=== PATIENT | female | born 1955 | race Caucasian/White ===

== ENCOUNTER 2017-02-22 22:00 | Observation (INO) ==
--- NOTE | 2017-02-22 22:07 | Emergency Department Note ---
Disposition Clinical Impression: Atrial fibrillation with rapid ventricular response, Palpitations, Anxiety Disposition: Admitted As Inpatient Condition: Good Referrals: Karla Solares CNP [Primary Care Provider] - Chest Pain HPI - General Stated Complaint: Chest pain Time Seen by Provider: 02/22/17 22:05 Source: patient Mode of arrival: private vehicle Limitations: no limitations Vital Signs Reviewed: Yes Nursing Notes Reviewed: Yes - History of Present Illness HPI Narrative: 61-year-old obese white female presents emergency department via private vehicle complaining of palpitations. She has a history of having atrial fibrillation, but says that she has not involve a time. She says that she feels like she is short of breath and that her heart is racing. She also says that her chest feels tight. She has had no history of coronary artery disease. She says that she has not yet taken her medicines today, but when this happens her medicines usually take care of it. She has not sure right now what her medicines are. She says that when her heart races she feels dizzy and like she will pass out. She has had no syncope. - Related Data Home Medications Medication Instructions Recorded Confirmed Levothyroxine [Synthroid] 150 mcg PO DAILY 06/08/15 02/22/17 Lisinopril [Zestril] 10 mg PO BID 06/08/15 02/22/17 Metoprolol [Lopressor] 50 mg PO BID 06/08/15 02/22/17 Simvastatin [Zocor] 80 mg PO HS 06/08/15 02/22/17 metFORMIN [Glucophage] 1,000 mg PO BIDWM 06/08/15 02/22/17 Aspirin Enteric Coated [Aspirin EC] 81 mg PO DAILY 07/17/15 02/22/17 Nitroglycerin [Nitrostat] 0.4 mg SL ONCE PRN 11/01/15 02/22/17 LORazepam [Ativan] 0.5 mg PO BID PRN 04/17/16 02/22/17 Ipratropium/Albuterol Neb [Duoneb] 3 ml IH Q4HR PRN 05/12/16 02/22/17 Previous Rx's Medication Instructions Recorded Naproxen [Naprosyn] 500 mg PO BID PRN #20 tablet 01/05/17 Allergies Allergy/AdvReac Type Severity Reaction Status Date / Time ondansetron AdvReac Hypertensio Verified 02/22/17 22:05 [From Zofran (as n hydrochloride)] All systems ED: reviewed and negative except as stated. Constitutional: Denies: fever, chills, weakness, weight change Eyes: Denies: eye pain, eye discharge, vision change ENT ED: Denies: ear pain, throat pain, dental pain, hearing loss, epistaxis, congestion, dysphagia Cardiovascular: Reports: as per HPI, chest pain, palpitations Respiratory: Reports: as per HPI, dyspnea. Denies: cough, wheezes Gastrointestinal: Denies: abdominal pain, nausea, vomiting, diarrhea, constipation, hematemesis, melena, hematochezia Genitourinary: Denies: dysuria, frequency, hematuria, discharge Musculoskeletal: Denies: back pain, neck pain, arthralgia, myalgia Integumentary: Denies: rash, abrasion, lesions Neurological: Denies: headache, weakness, numbness, paresthesias, confusion, abnormal gait, vertigo Psychiatric: Denies: anxiety, depression, suicidal thoughts, homicidal thoughts , auditory hallucinations, visual hallucinations Endocrine: Denies: fatigue Hematological/Lymphatic: Denies: easy bleeding, easy bruising Allergic/Immunologic: Denies: facial swelling, urticaria Chest Pain PMH - Past Medical History Medical history: Reports: COPD, CVA, diabetes, hyperlipidemia, hypertension, SVT , thyroid disease Surgical history: Reports: herniorrhaphy Psychiatric history: Reports: anxiety, depression 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 - Social History Smoking Status: Current every day smoker Alcohol use: Reports: none Drug use: Reports: none Physical Exam - General Limitations: no limitations General appearance: alert, in no apparent distress - Head Head exam: atraumatic, normocephalic, normal inspection - Eye Eye exam: Present: normal appearance, PERRL, EOMI - ENT ENT exam: normal exam, normal oropharynx, mucous membranes moist - Neck Neck exam: Present: normal inspection, full ROM, trachea midline - Chest Chest inspection: Present: normal inspection, symmetric chest wall rise - Respiratory Respiratory exam: Present: normal lung sounds bilaterally. Absent: respiratory distress, wheezes - Cardiovascular Cardiovascular exam: Present: tachycardia, irregular rhythm, other (Tachycardic rate) - Abdominal Exam Abdominal exam: Present: soft, Non-Tender. Absent: tenderness, distention, guarding, rebound, rigidity, organomegaly, pulsatile mass - Extremities Exam Extremities exam: Present: normal inspection, full ROM. Absent: tenderness, pedal edema - Back Exam Back exam: Present: normal inspection, full ROM. Absent: tenderness - Neurological Exam Neurological exam: Present: alert, oriented X3 - Psychiatric Psychiatric exam: Present: normal affect, anxious - Skin Skin exam: Present: warm, dry, intact, normal color Course Course Narrative: Following the patient's arrival and presentation with atrial fibrillation that had a rapid ventricular response of 180, she received 15 mg of Cardizem and 1 mg of Ativan. Shortly after her medications the patient had conversion to a normal sinus rhythm with a rate of 80. She is feeling much better and has no symptoms. Spoke with at [facility] to discuss observation. After reviewing the case with and the patient's subsequent return to baseline and being asymptomatic it is felt that transfer is unnecessary at this time. If the patient should return to atrial fibrillation with RVR she will be transferred to [place] for an intervention, but at this time she will remain here in [place] to be observed overnight. At the time of disposition a TSH is pending. Vital Signs Temperature 98.0 F 02/22/17 22:09 Pulse Rate 174 02/22/17 22:09 Respiratory Rate 24 02/22/17 22:09 Blood Pressure 111/88 02/22/17 22:09 O2 Sat by Pulse Oximetry 99 02/22/17 22:09 Temperature 98.0 F 02/22/17 22:09 Pulse Rate 76 02/22/17 23:35 Respiratory Rate 20 02/22/17 23:35 Blood Pressure 146/78 02/22/17 23:35 O2 Sat by Pulse Oximetry 100 02/22/17 23:35 Oxygen Delivery Oxygen Delivery Nasal Cannula Chest Pain - Lab Data Lab results reviewed: Yes I reviewed the patient's lab results. Result diagrams: 02/22/17 22:15 02/22/17 22:15 Lab Results 02/22/17 02/22/17 02/22/17 Range/Units 22:15 22:15 22:15 WBC 11.9 H (4.3-11.1) K/mcL RBC 4.54 (3.82-4.97) M/mcL Hgb 11.2 L (11.5-15.4) g/dL Hct 36.3 (35.3-44.9) % MCV 80.0 L (83.0-100.0) fL MCH 24.7 L (28.0-33.3) pg MCHC 30.9 L (31.6-35.5) g/dL RDW 14.6 H (11.5-14.5) % Plt Count 294 (140-400) K/mcL MPV 9.8 (9.4-12.4) fL Immature Gran % 0.3 (0-4) % Seg Neutrophils % 56.8 % Lymphocytes % 33.9 % Monocytes % 5.9 % Eosinophils % 2.4 % Basophils % 0.7 % Neutrophils # 6.8 (1.6-8.9) K/mcL Lymphocytes # 4.0 (0.6-4.6) K/mcL Monocytes # 0.7 (0.0-1.3) K/mcL Eosinophils # 0.3 (0.0-0.6) K/mcL Basophils # 0.1 (0.0-0.2) K/mcL PT 10.8 (9.4-12.1) Seconds INR 1.0 Sodium 138 (136-145) mEq/L Potassium 3.4 L (3.5-4.5) mEq/L Chloride 103 (98-109) mEq/L Carbon Dioxide 25 (19-29) mEq/L BUN 8 (7-20) mg/dL Creatinine 0.91 (0.57-1.11) mg/dL Est GFR ( Amer) > 60 (> 60) Est GFR (Non-Af Amer) > 60 (> 60) BUN/Creatinine Ratio 9 (6-26) Glucose 157 H (70-99) mg/dL Calculated Osmolality 288 (280-300) Calcium 9.6 (8.6-10.8) mg/dL Total Bilirubin 0.2 (0.2-1.2) mg/dL AST 15 (5-34) Units/L ALT 8 (0-55) Units/L Alkaline Phosphatase 113 (38-126) Units/L Troponin I (0-0.03) ng/mL Serum Total Protein 7.6 (6.0-8.3) g/dL Albumin 3.7 (3.5-5.0) g/dL Globulin 3.9 H (2.4-3.5) g/dL Albumin/Globulin Ratio 0.9 L (1.1-2.2) 02/22/17 Range/Units 22:15 WBC (4.3-11.1) K/mcL RBC (3.82-4.97) M/mcL Hgb (11.5-15.4) g/dL Hct (35.3-44.9) % MCV (83.0-100.0) fL MCH (28.0-33.3) pg MCHC (31.6-35.5) g/dL RDW (11.5-14.5) % Plt Count (140-400) K/mcL MPV (9.4-12.4) fL Immature Gran % (0-4) % Seg Neutrophils % % Lymphocytes % % Monocytes % % Eosinophils % % Basophils % % Neutrophils # (1.6-8.9) K/mcL Lymphocytes # (0.6-4.6) K/mcL Monocytes # (0.0-1.3) K/mcL Eosinophils # (0.0-0.6) K/mcL Basophils # (0.0-0.2) K/mcL PT (9.4-12.1) Seconds INR Sodium (136-145) mEq/L Potassium (3.5-4.5) mEq/L Chloride (98-109) mEq/L Carbon Dioxide (19-29) mEq/L BUN (7-20) mg/dL Creatinine (0.57-1.11) mg/dL Est GFR ( Amer) (> 60) Est GFR (Non-Af Amer) (> 60) BUN/Creatinine Ratio (6-26) Glucose (70-99) mg/dL Calculated Osmolality (280-300) Calcium (8.6-10.8) mg/dL Total Bilirubin (0.2-1.2) mg/dL AST (5-34) Units/L ALT (0-55) Units/L Alkaline Phosphatase (38-126) Units/L Troponin I 0.02 (0-0.03) ng/mL Serum Total Protein (6.0-8.3) g/dL Albumin (3.5-5.0) g/dL Globulin (2.4-3.5) g/dL Albumin/Globulin Ratio (1.1-2.2) - Radiology Data Radiology results reviewed: Yes I reviewed the patient's radiology results. One view chest read by Dr. Poe showed no acute abnormality. - EKG Data EKG results narrative: 2202: Sinus tachycardia, no ST elevation or depression appreciated, normal axis 2211: Atrial fibrillation with rapid ventricular response, ventricular rate 170 , normal axis, no ST elevation or depression appreciated 2231: Sinus rhythm, normal EKG, rate of 95, no ST elevation or depression, normal axis
[2017-02-22] MEDS: Aspirin 81 MG TAB.CHEW PO STA (22:16)
[2017-02-22] MEDS: 0.9 % Sodium Chloride 1,000 ML IVC ONE (22:16)
[2017-02-22] MEDS: *HR* LORazepam 2 MG/ML VIAL IVP ONE (22:26)
[2017-02-22] MEDS: Ondansetron 4 MG/2 ML VIAL IVP ONE (22:29)
[2017-02-22] MEDS: *HR* Morphine 2 MG/ML SYRINGE IVP ONE (22:29)
[2017-02-22 22:31] LABS: Basophils # 0.1 K/mcL (0.0-0.2); Basophils % 0.7 %; Eosinophils # 0.3 K/mcL (0.0-0.6); Eosinophils % 2.4 %; Hematocrit 36.3 % (35.3-44.9); Hemoglobin 11.2 g/dL (11.5-15.4); Immature Granulocytes % 0.3 % (0-4); Lymphocytes % 33.9 %; Mean Corpuscular HGB Conc 30.9 g/dL (31.6-35.5); Mean Corpuscular Hemoglobin 24.7 pg (28.0-33.3); Mean Platelet Volume 9.8 fL (9.4-12.4); Monocytes # 0.7 K/mcL (0.0-1.3); Monocytes % 5.9 %; Neutrophils # 6.8 K/mcL (1.6-8.9); Platelet Count 294 K/mcL (140-400); Red Blood Count 4.54 M/mcL (3.82-4.97); Red Cell Distribution Width 14.6 % (11.5-14.5); Segmented Neutrophils % 56.8 %
[2017-02-22 22:38] LABS: Prothrombin Time 10.8 Seconds (9.4-12.1)
[2017-02-22 22:43] LABS: Alanine Aminotransferase 8 Units/L (0-55); Albumin 3.7 g/dL (3.5-5.0); Albumin/Globulin Ratio 0.9 (1.1-2.2); Alkaline Phosphatase 113 Units/L (38-126); Aspartate Amino Transferase 15 Units/L (5-34); BUN/Creatinine Ratio 9 (6-26); Bilirubin,Total 0.2 mg/dL (0.2-1.2); Blood Urea Nitrogen 8 mg/dL (7-20); Calcium 9.6 mg/dL (8.6-10.8); Carbon Dioxide 25 mEq/L (19-29); Chloride 103 mEq/L (98-109); Globulin 3.9 g/dL (2.4-3.5); Glucose 157 mg/dL (70-99); Osmolality,Calculated 288 (280-300); Potassium 3.4 mEq/L (3.5-4.5); Sodium 138 mEq/L (136-145); Total Protein 7.6 g/dL (6.0-8.3); eGFR For African Americans > 60 (> 60); eGFR For Non-African Americans > 60 (> 60)
[2017-02-22] MEDS ORDERED: Acetaminophen 325 MG TABLET PO PRN (23:49)
[2017-02-22] MEDS ORDERED: *HR* Promethazine 25 MG/ML VIAL IVP PRN (23:49)
[2017-02-22] MEDS ORDERED: *HR* HYDROcodone/Acet 5/325 mg TABLET PO PRN (23:49)
[2017-02-22] MEDS ORDERED: Naloxone 0.4 MG/ML INJ IVP PRN (23:49)
[2017-02-23] MEDS ORDERED: *HR* HYDROcodone/Acet 5/325 mg TABLET PO PRN (01:10)
[2017-02-23] MEDS ORDERED: *HR* LORazepam 0.5 MG TABLET PO PRN (01:10)
[2017-02-23] MEDS ORDERED: Naloxone 0.4 MG/ML INJ IVP PRN (01:10)
[2017-02-23] MEDS ORDERED: Ipratropium/Albuterol Neb 3 ML IH PRN (01:10)
[2017-02-23] MEDS ORDERED: Acetaminophen 325 MG TABLET PO PRN (01:10)
[2017-02-23] MEDS ORDERED: *HR* Promethazine 25 MG/ML VIAL IVP PRN (01:10)
[2017-02-23] MEDS ORDERED: Nitroglycerin 0.4 MG TAB.SUBL SL PRN (01:10)
[2017-02-23 05:39] LABS: Basophils # 0.1 K/mcL (0.0-0.2); Basophils % 0.7 %; Eosinophils # 0.2 K/mcL (0.0-0.6); Eosinophils % 2.4 %; Hematocrit 31.1 % (35.3-44.9); Hemoglobin 9.6 g/dL (11.5-15.4); Immature Granulocytes % 0.2 % (0-4); Lymphocytes # 3.1 K/mcL (0.6-4.6); Mean Corpuscular HGB Conc 30.9 g/dL (31.6-35.5); Mean Corpuscular Hemoglobin 24.8 pg (28.0-33.3); Mean Corpuscular Volume 80.4 fL (83.0-100.0); Mean Platelet Volume 9.5 fL (9.4-12.4); Monocytes # 0.6 K/mcL (0.0-1.3); Monocytes % 6.7 %; Neutrophils # 5.1 K/mcL (1.6-8.9); Platelet Count 222 K/mcL (140-400); Red Blood Count 3.87 M/mcL (3.82-4.97); Red Cell Distribution Width 14.8 % (11.5-14.5)
[2017-02-23] MEDS ORDERED: *HR* Enoxaparin 40 MG/0.4 ML SYRINGE SQ SCH (07:00)
[2017-02-23] MEDS: *HR* Metformin 500 MG TABLET PO SCH (09:03)
[2017-02-23] MEDS: Aspirin Enteric Coated 81 MG Tablet PO SCH (09:03)
[2017-02-23] MEDS: *HR* Enoxaparin 40 MG/0.4 ML SYRINGE SQ SCH (09:03)
[2017-02-23 11:48] VITALS: BP 121/71
--- NOTE | 2017-02-23 13:21 | Discharge Summary ---
Date of Encounter: 02/23/17 Time of Encounter: 13:19 - Discharge Diagnosis (1) Atrial fibrillation with rapid ventricular response Priority: Primary Status: Acute Comments: Patient had SVT and it was resolved emergency room with 15 mg of IV cardiac exam. She has been sinus in the 70s since then. Somewhere discharge her home. I am going try to set her up with Dr. Salgado and am also going to give her low -dose Cardizem CD 120 - Discharge Medications Home Medications: Levothyroxine [Synthroid] 150 mcg PO DAILY 06/08/15 [History] Lisinopril [Zestril] 10 mg PO BID 06/08/15 [History] Metoprolol [Lopressor] 50 mg PO BID 06/08/15 [History] Simvastatin [Zocor] 80 mg PO HS 06/08/15 [History] metFORMIN [Glucophage] 1,000 mg PO BIDWM 06/08/15 [History] Aspirin Enteric Coated [Aspirin EC] 81 mg PO DAILY 07/17/15 [History] Nitroglycerin [Nitrostat] 0.4 mg SL ONCE PRN 11/01/15 [History] LORazepam [Ativan] 0.5 mg PO BID PRN 04/17/16 [History] Ipratropium/Albuterol Neb [Duoneb] 3 ml IH Q4HR PRN 05/12/16 [History] Naproxen [Naprosyn] 500 mg PO BID PRN #20 tablet 01/05/17 [Rx] Allergies/Adverse Reactions: Allergies ondansetron [From Zofran (as hydrochloride)] Adverse Reaction (Verified 22:05) Hypertension Date of admission: 02/23/17 00:28 Primary care physician: Karla Solares Discharging clinician: Silver Olivares Anticipated date of discharge: 02/23/17 - Patient Status Disposition: Home, Self-Care Functional capacity at discharge: independent ambulation Overall status at discharge: patient is back to baseline - Discharge Instructions Forms: ED Satisfaction Letter - Diet and Activity Activity: other Diet: diabetic diet Interval History: Patient arrived in emergency room because of follow-up tachycardia. Made her short of breath and feel tight. Hospital course: Ms. Starr is a 61 year old female - Time Spent with Patient Total time spent providing and/or coordinating discharge services: Less than 30 minutes - Constitutional Vitals: Temp Pulse Resp BP Pulse Ox 98.0 F 100 16 121/71 95 02/23/17 11:47 02/23/17 11:47 02/23/17 04:02 02/23/17 11:47 02/23/17 04:02 General appearance: Present: mild distress - Head Head exam: Present: atraumatic, normal inspection, normocephalic - Neck Neck exam general surgery: Present: supple, trachea midline. Absent: lymphadenopathy - Respiratory Respiratory exam: Present: CTAB. Absent: accessory muscle use, rales, rhonchi, wheezes - Cardiovascular Cardiovascular exam: Present: RRR, +S1, +S2. Absent: diastolic murmur, gallop, rubs, systolic murmur
[2017-02-23] MEDS: Diltiazem CD (24hr) 120 MG CAPSULE PO SCH (13:40)
[2017-02-24] MEDS ORDERED: Diltiazem CD (24hr) 120 MG CAPSULE PO SCH (09:00)
--- NOTE | 2017-02-25 11:51 | Electrocardiograph Report ---
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
--- NOTE | 2017-02-25 17:18 | Electrocardiograph Report ---
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
== END 2017-02-23 13:48 | disposition home or self-care (01) ==
LOC: EMEROOGRE 22:00 → INPGRE 22:00
PROVIDERS: ADMIT Internal Medicine; ATTEND Internal Medicine